=== PATIENT | male | born 1985 | race American Indian/Alaskan Native ===

== ENCOUNTER 2017-09-22 02:18 | Emergency (ER) | payer BC ==
[2017-09-22 02:45] VITALS: BP 107/71
--- NOTE | 2017-09-22 09:52 | Emergency Department Report ---
HPI - General Chief Complaint: Extremity Injury, Lower Time Seen by Provider: 09/22/17 09:10 - HPI HPI: a 32-year-old male presents ED complaining of right foot pain and left wrist pain times a week. Patient states he wears work boots for work for the past 6 months and is having some of his feet for about 12 hours causing some foot pain. 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 Patient denies any fall, trauma, recent injuries. ED Past Medical Hx - Past Medical History Previous Medical History?: Yes Additional medical history: ECZEMA - Surgical History Past Surgical History?: No - Social History Smoking Status: Never Smoker Substance Use Type: None - Medications Home Medications: Home Medications Medication Instructions Recorded Confirmed Last Taken Type Cyclobenzaprine [Flexeril] 10 mg PO QHS PRN #20 tablet 09/22/17 Unknown Rx Ibuprofen [Motrin 800 MG tab] 800 mg PO Q8HR PRN #30 tablet 09/22/17 Unknown Rx ED Review of Systems ROS: Stated complaint: R. FOOT PAIN Other details as noted in HPI Constitutional: denies: chills, fever Eyes: denies: eye pain, eye discharge, vision change ENT: denies: ear pain, throat pain Respiratory: denies: cough, shortness of breath, wheezing Cardiovascular: denies: chest pain, palpitations Endocrine: no symptoms reported Gastrointestinal: denies: abdominal pain, nausea, diarrhea Genitourinary: denies: urgency, dysuria Musculoskeletal: denies: back pain, joint swelling, arthralgia Skin: denies: rash, lesions Neurological: denies: headache, weakness, paresthesias Psychiatric: denies: anxiety, depression Hematological/Lymphatic: denies: easy bleeding, easy bruising Physical Exam - Physical Exam Vital Signs: Vital Signs 09/22/17 02:39 Temperature 97.9 F Pulse Rate 68 Respiratory 18 Rate Blood Pressure 107/71 O2 Sat by Pulse 97 Oximetry Physical Exam: GENERAL: Alert and oriented x3, no apparent distress, Normal Gait, atraumatic. Is able to ambulate with no problems HEAD: Head is normocephalic and a-traumatic. LUNGS: Symetrical with respiration, No wheezing, no rales or crackles, CTAB. HEART: S1, S2 present, regular rate and rhythm without murmur, no rubs, no gallops. Non tender to palpation EXTREMITIES/MUSCULOSKELETAL: No cyanosis, clubbing, rash, lesions or edema. Full ROM bilaterally. UE/LE Pulses 2+ bilaterally. All joints intact, no swelling sine restore foot joints. Mildly tender to palpation of the anterior aspect of the foot. No abnormalities or deformities seen NEUROLOGIC: The patient is cooperative with no focal neurologic deficits. SKIN: Warm and dry, No lesions, No ulceration or induration present. ED Course Vital Signs 09/22/17 02:39 Temperature 97.9 F Pulse Rate 68 Respiratory 18 Rate Blood Pressure 107/71 O2 Sat by Pulse 97 Oximetry ED Medical Decision Making - Medical Decision Making 32-year-old male presents with foot and wrist arthralgia I discussed with the patient to wear thick socks regularly in his boots. I discussed the patient soak in Epsom salts help with the arthralgia. Discussed with the patient to take Motrin as needed for pain Signs are stable patient is in no acute distress patient is able to ambulate properly, uses hands with no pain or problems. Critical care attestation.: If time is entered above; I have spent that time in minutes in the direct care of this critically ill patient, excluding procedure time. ED Disposition Clinical Impression: Arthralgia of foot, right, Arthralgia of wrist, left Disposition: DC-01 TO HOME OR SELFCARE Is pt being admited?: No Does the pt Need Aspirin: No Condition: Stable Instructions: Trigger Point Pain (ED), Arthralgia (ED), Heat Pack Application ( ED) Additional Instructions: Make sure to follow up with the primary care physician as discussed. Take all your medications as you've been prescribed. If you have any worsening symptoms or develop new symptoms please return to ED immediately. Apply heat to affected joint Soaking in Epsom salts for some relief Prescriptions: Cyclobenzaprine [Flexeril] 10 mg PO QHS PRN #20 tablet PRN Reason: Muscle Spasm Ibuprofen [Motrin 800 MG tab] 800 mg PO Q8HR PRN #30 tablet PRN Reason: Pain Referrals: PRIMARY CARE, [Primary Care Provider] - 3-5 Days [facility] [Outside] - 3-5 Days [facility] [Outside] - 3-5 Days Forms: Work/School Release Form(ED) Time of Disposition: 09:54
== END 2017-09-22 10:18 | disposition home or self-care (01) ==
LOC: ED 02:18
DX: M79.672 Pain in left foot (principal); M25.532 Pain in left wrist
CPT/HCPCS: 99282